=== PATIENT | male | born 1945 | race Caucasian/White ===

== ENCOUNTER 2021-02-03 18:18 | Emergency (ER) | payer BC ==
[2021-02-03 18:25] VITALS: TEMP 97.7
[2021-02-03] MEDS ORDERED: SODIUM CHLORIDE 0.9% 1,000 ML IV STA (18:40)
[2021-02-03] MEDS ORDERED: ONDANSETRON 4 MG/2 ML VIAL IVP STA (18:54)
[2021-02-03] MEDS ORDERED: MORPHINE SULFATE 4 MG/ML SYRINGE IVP STA (18:54)
[2021-02-03] MEDS ORDERED: KETOROLAC 15 MG/ML 1 ML VIAL IVP STA (18:55)
[2021-02-03] MEDS ORDERED: KETOROLAC 15 MG/ML 1 ML VIAL ONE (18:56)
--- NOTE | 2021-02-03 18:58 | ED ---
General Adult HPI - General Chief complaint: Back Pain/Injury Stated complaint: kidney stone Time Seen by Provider: 02/03/21 18:40 Source: patient, family Mode of arrival: wheelchair Limitations: no limitations - History of Present Illness Initial comments: Pieter is a 75-year-old gentleman with a past medical history of kidney stones who presents the ER today with intractable right flank pain. Patient reports he has recurrent kidney stones. Past a small approximately 2 weeks ago. Developed right-sided flank pain this morning. Pain radiates into the penis. He's not had any gross hematuria. Pain is consistent with previous stones. Is associ ated fevers or chills has nausea secondary to pain. - Related Data Home Medications Medication Instructions Recorded Confirmed Amitriptyline HCl [Elavil] 10 mg PO HS 02/03/21 02/03/21 Aspirin EC [Ecotrin Low Dose] 81 mg PO HS 02/03/21 02/03/21 Atorvastatin Calcium [Lipitor] 40 mg PO DAILY 02/03/21 02/03/21 Clopidogrel [Plavix] 75 mg PO DAILY 02/03/21 02/03/21 Latanoprost Ophth [Xalatan 0.005%] 1 drop BOTH EYES HS 02/03/21 02/03/21 Multivitamins, Thera [Multivitamin 1 tab PO DAILY 02/03/21 02/03/21 (formulary)] Allergies Allergy/AdvReac Type Severity Reaction Status Date / Time No Known Allergies Allergy Verified 02/03/21 19:38 Review of Systems ROS Statement: Those systems with pertinent positive or pertinent negative responses have been documented in the HPI. ROS Other: All systems not noted in ROS Statement are negative. Past Medical History Past Medical History: Coronary Artery Disease (CAD) Additional Past Medical History / Comment(s): kidney stones History of Any Multi-Drug Resistant Organisms: None Reported Additional Past Surgical History / Comment(s): lithotripsy Past Psychological History: No Psychological Hx Reported Smoking Status: Former smoker Past Alcohol Use History: Occasional Past Drug Use History: None Reported General Exam - General Exam Comments Initial Comments: Physical Exam GENERAL: writhing in pain HENT: Normocephalic, Atraumatic. EYES: PERRL, EOMI PULMONARY: Unlabored respirations. No audible rales rhonchi or wheezing was noted. CARDIOVASCULAR: There is a regular rate and rhythm without any murmurs gallops or rubs. ABDOMEN: Soft and nontender with normal bowel sounds. No pulsatile mass SKIN: Skin is clear with no lesions or rashes and otherwise unremarkable. : Deferred NEUROLOGIC: Patient is alert and oriented x3. Moving all extremities spontaneously MUSCULOSKELETAL: Normal extremities with adequate strength and full range of motion. No lower extremity swelling or edema. No calf tenderness. PSYCHIATRIC: Normal psychiatric evaluation. Limitations: no limitations Course Vital Signs 02/03/21 02/03/21 18:22 21:14 Temperature 97.7 F Pulse Rate 70 77 Respiratory 20 18 Rate Blood Pressure 111/66 O2 Sat by Pulse 99 98 Oximetry Medical Decision Making - Medical Decision Making Patient was seen and evaluated history is obtained from patient On initial exam patient is writhing in pain, pain medications were ordered Patient does report pain all the way into his penis, he provided a urine sample. Labs are unremarkable, computed tomography scan shows hydroureter and hydronephrosis without obvious stone. These results were discussed patient who states he believes he may have passed a stone while providing a urine sample. He's been pain-free since his initial evaluation is comfortable with plan for discharge home. He will follow with his urologist Dr. Mckenzie from the [facility]. - Lab Data Result diagrams: 02/03/21 19:13 02/03/21 19:13 Lab Results 02/03/21 02/03/21 02/03/21 Range/Units 19:13 19:13 19:13 WBC 7.3 (3.8-10.6) k/uL RBC 4.28 L (4.30-5.90) m/uL Hgb 14.0 (13.0-17.5) gm/dL Hct 42.3 (39.0-53.0) % MCV 98.7 (80.0-100.0) fL MCH 32.7 (25.0-35.0) pg MCHC 33.1 (31.0-37.0) g/dL RDW 13.2 (11.5-15.5) % Plt Count 184 (150-450) k/uL MPV 7.3 Neutrophils % 72 % Lymphocytes % 16 % Monocytes % 8 % Eosinophils % 1 % Basophils % 0 % Neutrophils # 5.3 (1.3-7.7) k/uL Lymphocytes # 1.1 (1.0-4.8) k/uL Monocytes # 0.6 (0-1.0) k/uL Eosinophils # 0.0 (0-0.7) k/uL Basophils # 0.0 (0-0.2) k/uL Sodium 137 (137-145) mmol/L Potassium 3.2 L (3.5-5.1) mmol/L Chloride 106 (98-107) mmol/L Carbon Dioxide 18 L (22-30) mmol/L Anion Gap 13 mmol/L BUN 17 (9-20) mg/dL Creatinine 0.84 (0.66-1.25) mg/dL Est GFR (CKD-EPI)AfAm >90 (>60 ml/min/1.73 sqM) Est GFR (CKD-EPI)NonAf 87 (>60 ml/min/1.73 sqM) Glucose 126 H (74-99) mg/dL Calcium 9.1 (8.4-10.2) mg/dL Total Bilirubin 1.7 H (0.2-1.3) mg/dL AST 28 (17-59) U/L ALT 17 (4-49) U/L Alkaline Phosphatase 90 (38-126) U/L Total Protein 7.0 (6.3-8.2) g/dL Albumin 4.4 (3.5-5.0) g/dL Urine Color Yellow Urine Appearance Clear (Clear) Urine pH 6.0 (5.0-8.0) Ur Specific [place] 1.024 (1.001-1.035) Urine Protein 1+ H (Negative) Urine Glucose (UA) Negative (Negative) Urine Ketones 3+ H (Negative) Urine Blood Small H (Negative) Urine Nitrite Negative (Negative) Urine Bilirubin Negative (Negative) Urine Urobilinogen <2.0 (<2.0) mg/dL Ur Leukocyte Esterase Negative (Negative) Urine RBC 8 H (0-5) /hpf Urine WBC 6 H (0-5) /hpf Ur Squamous Epith Cells <1 (0-4) /hpf Urine Mucus Occasional H (None) /hpf Disposition Clinical Impression: Kidney stone on right side Disposition: HOME SELF-CARE Condition: Stable Instructions (If sedation given, give patient instructions): Kidney Stones (ED) Is patient prescribed a controlled substance at d/c from ED?: No Referrals: Santosh Ackerman MD [Primary Care Provider] - 1-2 days
[2021-02-03 19:23] LABS: Basophils % (A) 0 %; Eosinophils % (A) 1 %; HCT 42.3 % (39.0-53.0); Lymphocytes # (A) 1.1 k/uL (1.0-4.8); Lymphocytes % (A) 16 %; MCH 32.7 pg (25.0-35.0); MCHC 33.1 g/dL (31.0-37.0); MCV 98.7 fL (80.0-100.0); Mean Platelet Volume 7.3; Monocytes # (A) 0.6 k/uL (0-1.0); Monocytes % (A) 8 %; Neutrophils # (A) 5.3 k/uL (1.3-7.7); Neutrophils % (A) 72 %; Platelet Count 184 k/uL (150-450); RBC 4.28 m/uL (4.30-5.90); RDW 13.2 % (11.5-15.5); WBC 7.3 k/uL (3.8-10.6)
--- NOTE | 2021-02-03 19:26 | XR ---
EXAMINATION TYPE: XR KUB DATE OF EXAM: 02/03/2021 COMPARISON: NONE HISTORY: Flank pain TECHNIQUE: 2 views FINDINGS: Bowel gas pattern is normal. There is no sign of intestinal obstruction or pneumoperitoneum . Fecal pattern is normal. There are multiple surgical clips in the pelvis on the left side. Lung bas es are clear. There are no pathologic calcifications over the kidneys. IMPRESSION: Nonacute abdomen.
[2021-02-03 19:35] LABS: ALT 17 U/L (4-49); AST 28 U/L (17-59); African American GFR (CKD) >90 (>60 ml/min/1.73 sqM); Albumin 4.4 g/dL (3.5-5.0); Alkaline Phosphatase 90 U/L (38-126); Anion Gap 13 mmol/L; Blood Urea Nitrogen 17 mg/dL (9-20); Calcium 9.1 mg/dL (8.4-10.2); Carbon Dioxide 18 mmol/L (22-30); Chloride 106 mmol/L (98-107); Glucose 126 mg/dL (74-99); Non-African American GFR(CKD) 87 (>60 ml/min/1.73 sqM); Sodium 137 mmol/L (137-145); Total Bilirubin 1.7 mg/dL (0.2-1.3)
[2021-02-03 19:45] LABS: Potassium 3.2 mmol/L (3.5-5.1)
[2021-02-03 20:18] LABS: Appearance,Urine Clear (Clear); Bilirubin,Urine Negative (Negative); Blood,Urine Small (Negative); Color,Urine Yellow; Glucose,Urine (UA) Negative (Negative); Ketones,Urine 3+ (Negative); Leukocyte Esterase,Urine Negative (Negative); Mucus,Urine Occasional /hpf; Nitrite,Urine Negative (Negative); Protein,Urine 1+ (Negative); RBC,Urine 8 /hpf (0-5); Specific Gravity,Urine 1.024 (1.001-1.035); Squamous Epithelial Cell,Urine <1 /hpf (0-4); Urobilinogen,Urine <2.0 mg/dL (<2.0); WBC,Urine 6 /hpf (0-5)
--- NOTE | 2021-02-03 20:48 | CT ---
EXAMINATION TYPE: CT abdomen pelvis w con DATE OF EXAM: 02/03/2021 COMPARISON: None HISTORY: right flank pain CT DLP: 741.6 mGycm Automated exposure control for dose reduction was used. CONTRAST: Performed with IV Contrast, patient injected with 100 mL of Isovue 300. Images obtained from the diaphragm to the floor the pelvis with IV contrast. FINDINGS: Lung bases are clear. There is no pleural effusion. Heart size is normal. There is no pericardial eff usion. Liver spleen pancreas appear intact. The bile ducts are not dilated. Gallbladder is distended and emma sures 3.7 cm. There is no adrenal mass. Kidneys have normal size. There is mild right-sided hydronephrosis and hydr oureter. Ureteral calculus is not definitely seen. Bladder is almost empty. There is no inguinal airam ia. There is no retroperitoneal adenopathy. Left kidney shows no hydronephrosis or hydroureter. Appendix is posterior and appears normal. There is no mesenteric edema. There is no ascites or free a ir. There is no bowel obstruction. The lumbar vertebra have normal alignment. There is mild vacuum di sc at L5-S1. There is degenerative spurring of the endplates. There is no compression fracture. The b broderick pelvis is intact. The hip joints are intact. There are anterior surgical clips in the left lower quadrant. This is probably from hernia surgery. IMPRESSION: Right side mild hydronephrosis and hydroureter. No stone seen. This could relate to nonopaque stone o r recently passed stone. Large gallbladder but no gallbladder wall thickening.
[2021-02-03 21:16] VITALS: BP 111/66; PULSE 77; RESP 18
== END 2021-02-03 21:48 | disposition home or self-care (01) ==
LOC: EC 18:18
DX: N13.2 Hydronephrosis with renal and ureteral calculous obstruction (principal); I25.10 Atherosclerotic heart disease of native coronary artery without angina pectoris; Z87.891 Personal history of nicotine dependence; Z79.82 Long term (current) use of aspirin; Z79.02 Long term (current) use of antithrombotics/antiplatelets; Z79.899 Other long term (current) drug therapy
CPT/HCPCS: 36415; 80053; 85025; 81001; 74018; 74177; 99284; 96374; 96375 ×2; 96361 ×3; J2270; J2405; J1885; Q9967